=== PATIENT | male | born 2000 | race Caucasian/White ===

== ENCOUNTER 2022-02-23 10:56 | Emergency (ER) | payer SELFPAY ==
[2022-02-23] MEDS ORDERED: Lidocaine 1% 20 ML MDV ONE (11:31)
[2022-02-23] MEDS ORDERED: Boostrix 0.5 ML (Tdap) VIAL ONE (11:54)
== END 2022-02-23 12:10 | disposition home or self-care (01) ==
LOC: NAV ERS 10:56
DX: S61.012A Laceration without foreign body of left thumb without damage to nail, initial encounter (principal); W26.9XXA Contact with unspecified sharp object(s), initial encounter; Z23 Encounter for immunization
CPT/HCPCS: 12001; 90471; 90715